=== PATIENT | female | born 1955 ===

== ENCOUNTER 2021-01-28 06:48 | Day surgery (SDC) | payer OTHER | END 2021-01-28 12:50 | disposition home or self-care (01) | LOC: AMB-ENDOS 06:48 | PROVIDERS: ATTEND Surgery | DX: D12.4 Benign neoplasm of descending colon (principal); Z20.822 Contact with and (suspected) exposure to COVID-19 ==

== ENCOUNTER 2022-05-15 05:45 | Day surgery (SDC) | payer OTHER ==
[~2022-05-15 05:45] MED LIST: GLUMETZA500 MG PO; SYNTHROID200 MCG PO; SYNTHROID75 MCG PO; ZESTRIL10 M1 PO
== END 2022-05-15 11:30 | disposition home or self-care (01) ==
LOC: CIR.AMB 05:45
PROVIDERS: ATTEND Obstetrics & Gynecology
DX: N84.0 Polyp of corpus uteri (principal); R93.5 Abnormal findings on diagnostic imaging of other abdominal regions, including retroperitoneum; D25.1 Intramural leiomyoma of uterus; I10 Essential (primary) hypertension; E11.9 Type 2 diabetes mellitus without complications; E03.9 Hypothyroidism, unspecified; E66.09 Other obesity due to excess calories; Z79.84 Long term (current) use of oral hypoglycemic drugs; Z20.822 Contact with and (suspected) exposure to COVID-19